=== PATIENT | male | born 1965 | race Two or more races ===

== ENCOUNTER 2019-09-27 20:57 | Emergency (ER) | payer MEDICAID ==
[2019-09-27] MEDS ORDERED: oxyCODONE 5 MG Tab PO ONE (21:06)
--- NOTE | 2019-09-27 22:29 | EDM.PDOC ---
ED HPI GENERAL MEDICAL PROBLEM - General Chief Complaint: General Stated Complaint: pain Time Seen by Provider: 09/27/19 21:00 Source of Information: Reports: Patient, EMS, EMS Notes Reviewed History Limitations: Reports: No Limitations - History of Present Illness INITIAL COMMENTS - FREE TEXT/NARRATIVE: Pt. presents to ER with complaints of leg and hip pain. Pt. has a longstanding history of chronic pain. He is a resident at the [facility]. Pt. was given a second oxycodone secondary to medication error at the [facility] this afternoon. As a result, staff would not give him his PM dose of oxycodone. Staff because upset and was yelling at the nursing staff, so his PCP had the patient sent to ER for evaluation. Pt. was cooperative with EMS. Denies any chief complaint, other than a worsening of his chronic pain. Pt. denies any fever or chills. No headache. No chest pain or shortness of breath, abdominal pain, nausea, vomiting, or diarrhea. Onset: Today Onset Date: 09/27/19 Location: Reports: Lower Extremity, Left, Lower Extremity, Right Quality: Reports: Ache, Burning Severity: Severe Associated Symptoms: Reports: No Other Symptoms. Denies: Confusion, Chest Pain , Cough, cough w sputum, Diaphoresis, Fever/Chills, Headaches, Loss of Appetite , Malaise, Nausea/Vomiting, Rash, Seizure, Shortness of Breath, Syncope, Weakness Bilateral Leg Pain Score (Numeric/FACES): 7 - Related Data Allergies Allergy/AdvReac Type Severity Reaction Status Date / Time codeine Allergy Other Verified 09/27/19 21:05 ketorolac [From Toradol] Allergy Other Verified 09/27/19 21:09 lactose Allergy Other Verified 09/27/19 21:09 meperidine [From Demerol] Allergy Other Verified 09/27/19 21:06 naproxen Allergy Other Verified 09/27/19 21:09 NSAIDS (Non-Steroidal Allergy Other Verified 09/27/19 21:09 Anti-Inflamma quetiapine [From Seroquel] Allergy Other Verified 09/27/19 21:09 ED ROS GENERAL - Review of Systems Review Of Systems: See Below Constitutional: Reports: No Symptoms HEENT: Reports: No Symptoms Respiratory: Reports: No Symptoms Cardiovascular: Reports: No Symptoms Endocrine: Reports: No Symptoms GI/Abdominal: Reports: No Symptoms : Reports: No Symptoms Musculoskeletal: Reports: Leg Pain Skin: Reports: No Symptoms Neurological: Reports: No Symptoms Psychiatric: Reports: No Symptoms Hematologic/Lymphatic: Reports: No Symptoms Immunologic: Reports: No Symptoms ED EXAM, GENERAL - Physical Exam Exam: See Below Exam Limited By: No Limitations General Appearance: Alert, WD/WN, No Apparent Distress Eye Exam: Bilateral Eye: EOMI, Normal Fundi, Normal Inspection, PERRL Nose: Normal Inspection, Normal Mucosa, No Blood Throat/Mouth: Normal Inspection, Normal Lips, Normal Teeth, Normal Gums, Normal Oropharynx, Normal Voice, No Airway Compromise Head: Atraumatic, Normocephalic Neck: Normal Inspection, Supple, Non-Tender, Full Range of Motion Respiratory/Chest: No Respiratory Distress, Lungs Clear, Normal Breath Sounds, No Accessory Muscle Use, Chest Non-Tender Cardiovascular: Normal Peripheral Pulses, Regular Rate, Rhythm, No Edema, No JVD , No Murmur, No Rub Peripheral Pulses: 4+: Radial (L) GI/Abdominal: Soft, Non-Tender, No Organomegaly, No Distention, No Mass, Pelvis Stable (Male) Exam: Deferred Rectal (Males) Exam: Deferred Back Exam: Normal Inspection Extremities: Normal Range of Motion, Other (significant stasis pigmentation to both lower legs.) Neurological: Alert, Oriented, CN II-XII Intact, Normal Cognition, Normal Gait, Normal Reflexes, No Motor/Sensory Deficits Psychiatric: Normal Affect, Normal Mood Skin Exam: Warm, Dry, Intact, Normal Color, No Rash Lymphatic: No Adenopathy Course - Vital Signs Last Recorded V/S: Last Vital Signs Temp 37.2 C 09/27/19 21:09 Pulse 84 09/27/19 21:09 Resp 20 09/27/19 21:09 BP 129/72 09/27/19 21:09 Pulse Ox 96 09/27/19 21:09 - Orders/Labs/Meds Meds: Medications Discontinued Medications Generic Name Dose Route Start Last Admin Trade Name Freq PRN Reason Stop Dose Admin Oxycodone HCl 5 mg 09/27/19 21:06 09/27/19 21:15 Oxycodone PO 09/27/19 21:07 5 mg ONETIME ONE Administration Departure - Departure Time of Disposition: 22:33 Disposition: DC/Tfer to SNF 03 Clinical Impression: Chronic pain - Discharge Information Referrals: Merlyn Mcmillan DO [Primary Care Provider] - Forms: ED Department Discharge, Interfacility Transfer RUPA Additional Instructions: Continue with medications at current dosages. Follow-up in clinic in 7-10 days. Sepsis Event Note - Evaluation Sepsis Screening Result: No Definite Risk - Focused Exam Vital Signs: Vital Signs Temp Pulse Resp BP Pulse Ox 09/27/19 21:09 37.2 C 84 20 129/72 96 Date Exam was Performed: 09/27/19 Time Exam was Performed: 22:21 - Assessment/Plan Plan: Pt. is alert, oriented and appropriate in ER. He is able to recall his entire complex medical history. He discussed his concerns with [facility] staff, stating that he has a hard time adjusting because he is young, independent, and able to perform all of his ADLs. Pt. sister also contacted the hospital. She is his POA. She is concerned that he has a history of addiction in the past and is getting pain medication. She was reassured that the dose of opiate pain medication is quite low and very closely regulated. Also, the patient suffers from numerous painful medical conditions. She was advised to address these issues with his PCP, as Hugh is in the emergency room and not experiencing any sort of medical emergency. All questions were answered for patient and family. He was advised to cooperate with the nurse working tonight and raise his concerns tomorrow with social work/administration.
== END 2019-09-27 21:58 ==
LOC: VM.ED 20:57
DX: G89.29 Other chronic pain (principal); Z88.5 Allergy status to narcotic agent; Z88.6 Allergy status to analgesic agent; Z88.8 Allergy status to other drugs, medicaments and biological substances; Z91.011 Allergy to milk products
CPT/HCPCS: 99283; A9270-GY

== ENCOUNTER 2019-11-13 05:56 | Emergency (ER) | payer MEDICAID ==
[2019-11-13] MEDS ORDERED: Insulin Lispro 100 Unit/ML 3 ML KwikPen SUBCUT ONE ×2 (06:17→06:38)
[2019-11-13] MEDS ORDERED: Insulin Lispro 100 Units/ML 3 ML Vial SUBCUT ONE (06:17)
[2019-11-13 07:27] LABS: CHLORIDE,CL 94 mmol/L (98-107); SODIUM,NA 133 mmol/L (136-145)
[2019-11-13 07:28] LABS: ANION GAP 12.2 mmol/L (10-20)
--- NOTE | 2019-11-13 07:36 | EDM.PDOC ---
ED HPI GENERAL MEDICAL PROBLEM - General Chief Complaint: Diabetic Complaint Stated Complaint: High blood sugar Time Seen by Provider: 11/13/19 06:05 Source of Information: Reports: Patient History Limitations: Reports: No Limitations - History of Present Illness INITIAL COMMENTS - FREE TEXT/NARRATIVE: Pt. presents to ER via EMS with hyperglycemia. He is a resident at [facility]. He states that they have been out of his Humalog insulin for 2 days. His blood sugar at [facility] was greater than 500 prior to coming to ER. Pt. is on lantus 45 u daily. His humalog dose is sliding scale but he always gets 8 units with meals. Pt. denies any chest pain or shortness of breath. No nausea, vomiting, or diarrhea. No fever or chills. No weakness or lightheadedness. No polyuria, polydpisia, or polyphagia. He offers no complaints. Pt. PCP is Dr. Mcmillan. Onset: Today Onset Date: 11/12/19 - Related Data Allergies Allergy/AdvReac Type Severity Reaction Status Date / Time codeine Allergy Other Verified 11/13/19 07:25 ketorolac [From Toradol] Allergy Other Verified 11/13/19 07:25 lactose Allergy Other Verified 11/13/19 07:25 meperidine [From Demerol] Allergy Other Verified 11/13/19 07:25 naproxen Allergy Other Verified 11/13/19 07:25 NSAIDS (Non-Steroidal Allergy Other Verified 11/13/19 07:25 Anti-Inflamma quetiapine [From Seroquel] Allergy Other Verified 11/13/19 07:25 Home Meds: Home Meds Aspirin 81 mg PO DAILY 09/27/19 [History] Benztropine [Cogentin] 0.5 mg PO DAILY 09/27/19 [History] Butalb/Acetaminophen/Caffeine [Zftrai-Isthwval-Olqh 50-325-40] 1 each PO Q4H PRN 09/27/19 [History] Calcium Carbonate [Tums] 500 mg PO Q8H PRN 09/27/19 [History] [place]/Min Oil/Gabby/Wool Alcoh [Eucerin Creme] 0 gm TOP BID 09/27/19 [History] Cholecalciferol (Vitamin D3) [Vitamin D3] 5,000 unit PO DAILY 09/27/19 [History] ClonazePAM [KlonoPIN] 0.5 mg PO BID 09/27/19 [History] FLUoxetine HCl [Prozac] 20 mg PO DAILY 09/27/19 [History] Hydrocortisone [Hydrocortisone 1% Crm] 28.4 gm TOP BID PRN 09/27/19 [History] Insulin Glargine,Hum.Rec.Anlog [Basaglar Kwikpen U-100] 55 unit SQ DAILY [History] Insulin Lispro [HumaLOG] 10 unit SQ TID 09/27/19 [History] Lisinopril [Zestril] 40 mg PO DAILY 09/27/19 [History] Loperamide HCl [Imodium A-D] 2 mg PO ASDIRECTED PRN 09/27/19 [History] Morphine Sulfate 15 mg PO BID 09/27/19 [History] Naloxone [Narcan] 0.4 mg .XX ASDIRECTED PRN 09/27/19 [History] Ondansetron [Ondansetron Odt] 4 mg PO Q12H PRN 09/27/19 [History] Pantoprazole Sodium 40 mg PO DAILY 09/27/19 [History] Pramipexole [Mirapex] 0.25 mg PO DAILY 09/27/19 [History] Pregabalin 150 mg PO BID 09/27/19 [History] Rifaximin [Xifaxan] 550 mg PO BID 09/27/19 [History] Rivaroxaban [Xarelto] 10 mg PO DAILY 09/27/19 [History] Skin Cleanser Comb.no.11 [Cavilon] 236 ml TP BID 09/27/19 [History] Torsemide 20 mg PO DAILY 09/27/19 [History] Venlafaxine HCl [Venlafaxine HCl ER] 225 mg PO DAILY 09/27/19 [History] Ziprasidone HCl [Geodon] 60 mg PO BID 09/27/19 [History] Zolpidem Tartrate 10 mg PO BEDTIME 09/27/19 [History] amLODIPine Besylate [Amlodipine Besylate] 10 mg PO DAILY 09/27/19 [History] atorvaSTATin [Lipitor] 10 mg PO DAILY 09/27/19 [History] levETIRAcetam [Levetiracetam] 750 mg PO BID 09/27/19 [History] metFORMIN [Glucophage XR] 500 mg PO BIDMEALS 09/27/19 [History] oxyCODONE 5 mg PO DAILY PRN 09/27/19 [History] oxyCODONE 5 mg PO TID 09/27/19 [History] Past Medical History Cardiovascular History: Reports: Hypertension Gastrointestinal History: Reports: Fatty Liver, Other (See Below) Other Gastrointestinal History: Crohns, hepatic failure Musculoskeletal History: Reports: Other (See Below) Other Musculoskeletal History: generalized muscle weakness Neurological History: Reports: Neuropathy, Diabetic, Neuropathy, Peripheral, Seizure Psychiatric History: Reports: Anxiety, Bipolar, Other (See Below) Other Psychiatric History: failure to thrive, personality disorder, mixed obsessional thoughts and acts, episodic paroxysmal anxiety, insomnia, agitation Endocrine/Metabolic History: Reports: Diabetes, Type II, Obesity/BMI 30+ Dermatologic History: Reports: Venous Stasis Dermatitis ED ROS GENERAL - Review of Systems Review Of Systems: Comprehensive ROS is negative, except as noted in HPI. ED EXAM GENERAL NO PERIP PULSE - Physical Exam Exam: See Below Exam Limited By: No Limitations General Appearance: Alert, WD/WN, No Apparent Distress Eye Exam: Bilateral Eye: EOMI, Normal Fundi, Normal Inspection, PERRL Nose: Normal Inspection, Normal Mucosa, No Blood Throat/Mouth: Normal Inspection, Normal Lips, Normal Teeth, Normal Gums, Normal Oropharynx, Normal Voice, No Airway Compromise Head: Atraumatic, Normocephalic Neck: Normal Inspection, Supple, Non-Tender, Full Range of Motion Respiratory/Chest: No Respiratory Distress, Lungs Clear, Normal Breath Sounds, No Accessory Muscle Use, Chest Non-Tender Cardiovascular: Normal Peripheral Pulses, Regular Rate, Rhythm, No Edema, No Gallop, No JVD, No Murmur, No Rub GI/Abdominal: Normal Bowel Sounds, Soft, Non-Tender, No Organomegaly, No Distention, No Mass (Male) Exam: Deferred Rectal (Males) Exam: Deferred Back Exam: Normal Inspection, Full Range of Motion Extremities: Normal Inspection, Normal Range of Motion, Non-Tender, No Pedal Edema, Normal Capillary Refill Neurological: Alert, Oriented, CN II-XII Intact, Normal Cognition, Normal Gait, Normal Reflexes, No Motor/Sensory Deficits Psychiatric: Normal Affect, Normal Mood Skin Exam: Warm, Dry, Intact, Normal Color, No Rash Lymphatic: No Adenopathy Course - Vital Signs Last Recorded V/S: Last Vital Signs Temp 36.9 C 11/13/19 07:22 Pulse 85 11/13/19 07:22 Resp 16 11/13/19 07:22 BP 115/65 11/13/19 07:22 Pulse Ox 94 L 11/13/19 07:22 - Orders/Labs/Meds Orders: Active Orders 24 hr Category Date Time Status Blood Glucose Check, Bedside [RC] ONETIME Care 11/13/19 07:42 Active Labs: Laboratory Tests 11/13/19 11/13/19 11/13/19 Range/Units 06:08 06:42 06:42 WBC 7.1 (4.0-10.0) x10^3/uL RBC 4.08 L (4.5-6.0) x10^6/uL Hgb 12.4 L (14.0-18.0) g/dL Hct 37.3 L (40.0-52.0) % MCV 91.4 (78.0-93.0) fL MCH 30.4 (26.0-32.0) pg MCHC 33.2 (32.0-36.0) g/dL RDW Coeff of Kimberlyn 13.4 (10.0-15.0) % Plt Count 145 (130-400) x10^3/uL Neut % (Auto) 62.3 (50.0-80.0) % Lymph % (Auto) 26.6 (25.0-50.0) % [place] % (Auto) 9.5 (2.0-11.0) % Eos % (Auto) 1.3 (0.0-4.0) % Baso % (Auto) 0.3 (0.2-1.2) % POC ABG pH (7.35-7.45) POC ABG pCO2 (35-45) mmHG POC ABG pO2 (80-105) mmHG POC ABG HCO3 (22-26) mmol/L POC ABG Total CO2 (23-27) mmol/L POC ABG O2 Sat (95-98) % POC ABG Base Excess (-2-3) mmol/L POC FiO2 Sodium 133 L (136-145) mmol/L Potassium 4.2 (3.5-5.1) mmol/L Chloride 94 L (98-107) mmol/L Carbon Dioxide 31 (21-32) mmol/L Anion Gap 12.2 (10-20) mmol/L BUN 8 (7-18) mg/dL Creatinine 1.0 (0.70-1.30) mg/dL Est Cr Clr Drug Dosing 88.21 mL/min Estimated GFR (MDRD) > 60 Glucose 449 H* (74-106) mg/dL POC Glucose 489 H* (74-106) mg/dL Calcium 8.7 (8.5-10.1) mg/dL Corrected Calcium 9.66 (8.5-10.1) mg/dL Total Bilirubin 0.4 (0.2-1.0) mg/dL AST 42 H (15-37) U/L ALT 45 (16-63) U/L Alkaline Phosphatase 288 H (46-116) U/L Total Protein 8.1 (6.4-8.2) g/dL Albumin 2.8 L (3.4-5.0) g/dL Globulin 5.3 Albumin/Globulin Ratio 0.53 Urine Color (YELLOW) Urine Appearance (CLEAR) Urine pH (5.0-8.0) Ur Specific [place] Urine Protein (NEGATIVE) mg/dL Urine Glucose (UA) (NEGATIVE) mg/dL Urine Ketones (NEGATIVE) mg/dL Urine Occult Blood (NEGATIVE) Urine Nitrite (NEGATIVE) Urine Bilirubin (NEGATIVE) Urine Urobilinogen (0.2) EU/dL Ur Leukocyte Esterase (NEGATIVE) Urine RBC (NOT SEEN) /HPF Urine WBC (NOT SEEN) /HPF Ur Squamous Epith Cells (NEGATIVE) /HPF Urine Bacteria (NEGATIVE) /HPF Urine Mucus (NEGATIVE) /LPF 11/13/19 11/13/19 11/13/19 Range/Units 07:01 07:06 07:15 WBC (4.0-10.0) x10^3/uL RBC (4.5-6.0) x10^6/uL Hgb (14.0-18.0) g/dL Hct (40.0-52.0) % MCV (78.0-93.0) fL MCH (26.0-32.0) pg MCHC (32.0-36.0) g/dL RDW Coeff of Kimberlyn (10.0-15.0) % Plt Count (130-400) x10^3/uL Neut % (Auto) (50.0-80.0) % Lymph % (Auto) (25.0-50.0) % [place] % (Auto) (2.0-11.0) % Eos % (Auto) (0.0-4.0) % Baso % (Auto) (0.2-1.2) % POC ABG pH 7.397 (7.35-7.45) POC ABG pCO2 49 H (35-45) mmHG POC ABG pO2 64 L (80-105) mmHG POC ABG HCO3 30 H (22-26) mmol/L POC ABG Total CO2 31 H (23-27) mmol/L POC ABG O2 Sat 92 L (95-98) % POC ABG Base Excess 5 H (-2-3) mmol/L POC FiO2 0.21 Sodium (136-145) mmol/L Potassium (3.5-5.1) mmol/L Chloride (98-107) mmol/L Carbon Dioxide (21-32) mmol/L Anion Gap (10-20) mmol/L BUN (7-18) mg/dL Creatinine (0.70-1.30) mg/dL Est Cr Clr Drug Dosing mL/min Estimated GFR (MDRD) Glucose (74-106) mg/dL POC Glucose 429 H* (74-106) mg/dL Calcium (8.5-10.1) mg/dL Corrected Calcium (8.5-10.1) mg/dL Total Bilirubin (0.2-1.0) mg/dL AST (15-37) U/L ALT (16-63) U/L Alkaline Phosphatase (46-116) U/L Total Protein (6.4-8.2) g/dL Albumin (3.4-5.0) g/dL Globulin Albumin/Globulin Ratio Urine Color Yellow (YELLOW) Urine Appearance Slightly cloudy H (CLEAR) Urine pH 6.5 (5.0-8.0) Ur Specific [place] 1.015 Urine Protein Negative (NEGATIVE) mg/dL Urine Glucose (UA) 500 H (NEGATIVE) mg/dL Urine Ketones Negative (NEGATIVE) mg/dL Urine Occult Blood Moderate H (NEGATIVE) Urine Nitrite Negative (NEGATIVE) Urine Bilirubin Negative (NEGATIVE) Urine Urobilinogen 0.2 (0.2) EU/dL Ur Leukocyte Esterase Negative (NEGATIVE) Urine RBC 10-20 H (NOT SEEN) /HPF Urine WBC 0-5 (NOT SEEN) /HPF Ur Squamous Epith Cells Rare (NEGATIVE) /HPF Urine Bacteria Occasional H (NEGATIVE) /HPF Urine Mucus Few H (NEGATIVE) /LPF 11/13/19 Range/Units 07:50 WBC (4.0-10.0) x10^3/uL RBC (4.5-6.0) x10^6/uL Hgb (14.0-18.0) g/dL Hct (40.0-52.0) % MCV (78.0-93.0) fL MCH (26.0-32.0) pg MCHC (32.0-36.0) g/dL RDW Coeff of Kimberlyn (10.0-15.0) % Plt Count (130-400) x10^3/uL Neut % (Auto) (50.0-80.0) % Lymph % (Auto) (25.0-50.0) % [place] % (Auto) (2.0-11.0) % Eos % (Auto) (0.0-4.0) % Baso % (Auto) (0.2-1.2) % POC ABG pH (7.35-7.45) POC ABG pCO2 (35-45) mmHG POC ABG pO2 (80-105) mmHG POC ABG HCO3 (22-26) mmol/L POC ABG Total CO2 (23-27) mmol/L POC ABG O2 Sat (95-98) % POC ABG Base Excess (-2-3) mmol/L POC FiO2 Sodium (136-145) mmol/L Potassium (3.5-5.1) mmol/L Chloride (98-107) mmol/L Carbon Dioxide (21-32) mmol/L Anion Gap (10-20) mmol/L BUN (7-18) mg/dL Creatinine (0.70-1.30) mg/dL Est Cr Clr Drug Dosing mL/min Estimated GFR (MDRD) Glucose (74-106) mg/dL POC Glucose 346 H (74-106) mg/dL Calcium (8.5-10.1) mg/dL Corrected Calcium (8.5-10.1) mg/dL Total Bilirubin (0.2-1.0) mg/dL AST (15-37) U/L ALT (16-63) U/L Alkaline Phosphatase (46-116) U/L Total Protein (6.4-8.2) g/dL Albumin (3.4-5.0) g/dL Globulin Albumin/Globulin Ratio Urine Color (YELLOW) Urine Appearance (CLEAR) Urine pH (5.0-8.0) Ur Specific [place] Urine Protein (NEGATIVE) mg/dL Urine Glucose (UA) (NEGATIVE) mg/dL Urine Ketones (NEGATIVE) mg/dL Urine Occult Blood (NEGATIVE) Urine Nitrite (NEGATIVE) Urine Bilirubin (NEGATIVE) Urine Urobilinogen (0.2) EU/dL Ur Leukocyte Esterase (NEGATIVE) Urine RBC (NOT SEEN) /HPF Urine WBC (NOT SEEN) /HPF Ur Squamous Epith Cells (NEGATIVE) /HPF Urine Bacteria (NEGATIVE) /HPF Urine Mucus (NEGATIVE) /LPF Meds: Medications Discontinued Medications Generic Name Dose Route Start Last Admin Trade Name Freq PRN Reason Stop Dose Admin Insulin Human Lispro 16 unit 11/13/19 06:17 Humalog SUBCUT 11/13/19 06:18 ONETIME ONE Insulin Human Lispro 16 unit 11/13/19 06:38 Humalog SUBCUT 11/13/19 06:39 ONETIME ONE Departure - Departure Time of Disposition: 07:56 Disposition: DC/Tfer to SNF 03 Clinical Impression: Hyperglycemia - Discharge Information Instructions: Hyperglycemia, Insulin Lispro injection Referrals: Merlyn Mcmillan DO [Primary Care Provider] - Forms: ED Department Discharge Additional Instructions: Humalog 8 units with meals. Check blood sugar 4 times per day today. Please have your social contact worker get in contact with his PCP regarding his insulin. We sent the rest of the bottle of humalog back to the care center with him (we don't use pens, only vials) which you can use for the time being. Recheck in clinic in 7-10 days. Sepsis Event Note - Evaluation Sepsis Screening Result: No Definite Risk - Focused Exam Vital Signs: Vital Signs Temp Pulse Resp BP Pulse Ox 11/13/19 07:22 36.9 C 85 16 115/65 94 L Date Exam was Performed: 11/13/19 Time Exam was Performed: 07:56 - My Orders Last 24 Hours: My Active Orders 11/13/19 07:42 Blood Glucose Check, Bedside [] ONETIME - Assessment/Plan Last 24 Hours: My Active Orders 11/13/19 07:42 Blood Glucose Check, Bedside [RC] ONETIME Plan: Humalog 8 units with meals. Check blood sugar 4 times per day today. Please have your social contact worker get in contact with his PCP regarding his insulin. We sent the rest of the bottle of humalog back to the care center with him (we don't use pens, only vials) which you can use for the time being. Recheck in clinic in 7-10 days.
== END 2019-11-13 08:04 ==
LOC: VM.ED 05:56
DX: E11.65 Type 2 diabetes mellitus with hyperglycemia (principal); I10 Essential (primary) hypertension; E11.40 Type 2 diabetes mellitus with diabetic neuropathy, unspecified; E66.9 Obesity, unspecified; Z79.82 Long term (current) use of aspirin; Z79.899 Other long term (current) drug therapy; Z79.4 Long term (current) use of insulin; Z88.5 Allergy status to narcotic agent; Z88.6 Allergy status to analgesic agent; Z88.8 Allergy status to other drugs, medicaments and biological substances
CPT/HCPCS: 36415; 36600; 80053; 81001; 82803; 82962; 85025; 99285; J1815

== ENCOUNTER 2020-02-10 00:44 | Emergency (ER) | payer MEDICAID ==
--- NOTE | 2020-02-10 01:08 | EDM.PDOC ---
ED HPI GENERAL MEDICAL PROBLEM - General Chief Complaint: Lower Extremity Injury/Pain Stated Complaint: Swollen Leg Time Seen by Provider: 02/10/20 00:44 Source of Information: Reports: Patient, EMS History Limitations: Reports: No Limitations - History of Present Illness INITIAL COMMENTS - FREE TEXT/NARRATIVE: Pt. presents to ER with complaints of swelling in L lower extremity and shortness of breath. Pt. states that he has been experiencing pain and swelling to L lower extremity. Nurse at [facility] stated that he only began complaining of this today. Pt. states, however, that he has been experiencing this for months. He has had an extensive workup by Dr. Mcmillan for this leg swelling. He had a negative ultrasound of the extremity in September. He has also had negative d dimers. He is currently on [id number] daily. Pt. denies any fever or chills. No chest pain or palpitations. No nausea, vomiting or diarrhea. Pt. blood sugars have been elevated. last available blood sugar in clinic chart was 458. His novolog and lantus have been increased since then, but his blood sugar is still over 400. Denies any polyuria polydipsia. Onset: Today Onset Date: 02/10/20 Location: Reports: Lower Extremity, Left, Generalized Left Lower Leg Pain Score (Numeric/FACES): 7 - Related Data Allergies Allergy/AdvReac Type Severity Reaction Status Date / Time codeine Allergy Other Verified 02/10/20 00:29 ketorolac [From Toradol] Allergy Other Verified 02/10/20 00:29 lactose Allergy Other Verified 02/10/20 00:29 meperidine [From Demerol] Allergy Other Verified 02/10/20 00:29 naproxen Allergy Other Verified 02/10/20 00:29 NSAIDS (Non-Steroidal Allergy Other Verified 02/10/20 00:29 Anti-Inflamma quetiapine [From Seroquel] Allergy Other Verified 02/10/20 00:29 Home Meds: Home Meds Aspirin 81 mg PO DAILY 09/27/19 [History] Benztropine [Cogentin] 0.5 mg PO DAILY 09/27/19 [History] Butalb/Acetaminophen/Caffeine [Lyvduh-Ungkodul-Nxbw 50-325-40] 1 each PO Q4H PRN 09/27/19 [History] Calcium Carbonate [Tums] 500 mg PO Q8H PRN 09/27/19 [History] [place]/Min Oil/Gabby/Wool Alcoh [Eucerin Creme] 0 gm TOP BID 09/27/19 [History] Cholecalciferol (Vitamin D3) [Vitamin D3] 5,000 unit PO DAILY 09/27/19 [History] ClonazePAM [KlonoPIN] 0.5 mg PO BID 09/27/19 [History] FLUoxetine HCl [Prozac] 20 mg PO DAILY 09/27/19 [History] Hydrocortisone [Hydrocortisone 1% Crm] 28.4 gm TOP BID PRN 09/27/19 [History] Insulin Glargine,Hum.Rec.Anlog [Basaglar Kwikpen U-100] 55 unit SQ DAILY [History] Insulin Lispro [HumaLOG] 10 unit SQ TID 09/27/19 [History] Loperamide HCl [Imodium A-D] 2 mg PO ASDIRECTED PRN 09/27/19 [History] Morphine Sulfate 15 mg PO BID 09/27/19 [History] Naloxone [Narcan] 0.4 mg .XX ASDIRECTED PRN 09/27/19 [History] Ondansetron [Ondansetron Odt] 4 mg PO Q12H PRN 09/27/19 [History] Pantoprazole Sodium 40 mg PO DAILY 09/27/19 [History] Pramipexole [Mirapex] 0.25 mg PO DAILY 09/27/19 [History] Pregabalin 150 mg PO BID 09/27/19 [History] Rifaximin [Xifaxan] 550 mg PO BID 09/27/19 [History] Rivaroxaban [Xarelto] 10 mg PO DAILY 09/27/19 [History] Skin Cleanser Comb.no.11 [Cavilon] 236 ml TP BID 09/27/19 [History] Torsemide 20 mg PO DAILY 09/27/19 [History] Venlafaxine HCl [Venlafaxine HCl ER] 225 mg PO DAILY 09/27/19 [History] Zolpidem Tartrate 10 mg PO BEDTIME 09/27/19 [History] amLODIPine Besylate [Amlodipine Besylate] 10 mg PO DAILY 09/27/19 [History] atorvaSTATin [Lipitor] 10 mg PO DAILY 09/27/19 [History] levETIRAcetam [Levetiracetam] 750 mg PO BID 09/27/19 [History] lisinopriL [Zestril] 40 mg PO DAILY 09/27/19 [History] metFORMIN [Glucophage XR] 500 mg PO BIDMEALS 09/27/19 [History] oxyCODONE 5 mg PO DAILY PRN 09/27/19 [History] oxyCODONE 5 mg PO TID 09/27/19 [History] ziprasidone HCL [Geodon] 60 mg PO BID 09/27/19 [History] Past Medical History Cardiovascular History: Reports: Hypertension Gastrointestinal History: Reports: Fatty Liver, Other (See Below) Other Gastrointestinal History: Crohns, hepatic failure Musculoskeletal History: Reports: Other (See Below) Other Musculoskeletal History: generalized muscle weakness Neurological History: Reports: Neuropathy, Diabetic, Neuropathy, Peripheral, Seizure Psychiatric History: Reports: Anxiety, Bipolar, Other (See Below) Other Psychiatric History: failure to thrive, personality disorder, mixed obsessional thoughts and acts, episodic paroxysmal anxiety, insomnia, agitation Endocrine/Metabolic History: Reports: Diabetes, Type II, Obesity/BMI 30+ Dermatologic History: Reports: Venous Stasis Dermatitis Review of Systems - Review of Systems Review Of Systems: See Below Constitutional: Reports: No Symptoms Eyes: Reports: No Symptoms Ears: Reports: No Symptoms Nose: Reports: No Symptoms Mouth/Throat: Reports: No Symptoms Respiratory: Reports: Shortness of Breath Cardiovascular: Reports: No Symptoms GI/Abdominal: Reports: No Symptoms Genitourinary: Reports: No Symptoms Musculoskeletal: Reports: Leg Pain Skin: Reports: No Symptoms Neurological: Reports: No Symptoms Psychiatric: Reports: No Symptoms ED EXAM, GENERAL - Physical Exam Exam: See Below Exam Limited By: No Limitations General Appearance: Alert, WD/WN, No Apparent Distress Head: Atraumatic, Normocephalic Neck: Normal Inspection, Supple, Non-Tender, Full Range of Motion Respiratory/Chest: No Respiratory Distress, Lungs Clear, Normal Breath Sounds, No Accessory Muscle Use, Chest Non-Tender Cardiovascular: Normal Peripheral Pulses, Regular Rate, Rhythm, No Edema, No JVD , No Murmur Peripheral Pulses: 3+: Dorsalis Pedis (L), Dorsalis Pedis (R), 4+: Radial (L), Radial (R) GI/Abdominal: Normal Bowel Sounds, Soft, Non-Tender, No Distention, No Mass (Male) Exam: Deferred Rectal (Males) Exam: Deferred Back Exam: Normal Inspection, Full Range of Motion Extremities: Other (stasis pigmentation noted to both legs. Both are edematous, L > R. Iman test is negative. ) Neurological: Alert, Oriented, CN II-XII Intact, No Motor/Sensory Deficits Psychiatric: Normal Affect EKG INTERPRETATION Rhythm: NSR [place]: Normal P-Wave: Present QRS: Normal ST-T: Normal QT: Normal Course - Vital Signs Last Recorded V/S: Last Vital Signs Temp 37.0 C 02/10/20 01:14 Pulse 87 02/10/20 01:14 Resp 12 02/10/20 01:14 BP 141/65 H 02/10/20 01:14 Pulse Ox 96 02/10/20 01:14 - Orders/Labs/Meds Orders: Active Orders 24 hr Category Date Time Status EKG Documentation Completion [RC] STAT Care 02/10/20 00:53 Active Chest 1V Frontal [CR] Stat Exams 02/10/20 00:53 Taken COMPREHENSIVE METABOLIC PN,CMP [CHEM] Stat Lab 02/10/20 01:18 Received PRO B-TYPE NATRIUR PEPT,BNPPRO [CHEM] Stat Lab 02/10/20 01:18 Received TROPONIN I [CHEM] Stat Lab 02/10/20 01:18 Received Labs: Laboratory Tests 02/10/20 02/10/20 Range/Units 01:18 01:18 WBC 6.9 (4.0-10.0) x10^3/uL RBC 4.14 L (4.5-6.0) x10^6/uL Hgb 12.5 L (14.0-18.0) g/dL Hct 37.3 L (40.0-52.0) % MCV 90.1 (78.0-93.0) fL MCH 30.2 (26.0-32.0) pg MCHC 33.5 (32.0-36.0) g/dL RDW Coeff of Kimberlyn 13.1 (10.0-15.0) % Plt Count 136 (130-400) x10^3/uL Neut % (Auto) 56.3 (50.0-80.0) % Lymph % (Auto) 33.3 (25.0-50.0) % Lamar % (Auto) 8.8 (2.0-11.0) % Eos % (Auto) 1.3 (0.0-4.0) % Baso % (Auto) 0.3 (0.2-1.2) % PT 11.1 (9.5-12.3) SEC INR 1.0 L (2.0-3.5) D-Dimer, Quantitative 0.30 (<=0.58) mg/LFEU Meds: Medications Discontinued Medications Generic Name Dose Route Start Last Admin Trade Name Freq PRN Reason Stop Dose Admin Oxycodone HCl 5 mg 02/10/20 01:16 02/10/20 01:22 Oxycodone PO 02/10/20 01:17 5 mg ONETIME ONE Administration - Radiology Interpretation Free Text/Narrative:: Chest x-ray is negative. Departure - Departure Time of Disposition: 02:19 Disposition: DC/Tfer to SNF 03 Clinical Impression: Hyperglycemia - Discharge Information Referrals: Merlyn Mcmillan DO [Primary Care Provider] - Forms: ED Department Discharge Sepsis Event Note - Focused Exam Vital Signs: Vital Signs Temp Pulse Resp BP Pulse Ox 02/10/20 01:14 37.0 C 87 12 141/65 H 96 Date Exam was Performed: 02/10/20 Time Exam was Performed: 01:42 - Problem List Review Problem List Initiated/Reviewed/Updated: Yes - My Orders Last 24 Hours: My Active Orders 02/10/20 00:53 EKG Documentation Completion [RC] STAT Chest 1V Frontal [CR] Stat 02/10/20 01:18 COMPREHENSIVE METABOLIC PN,CMP [CHEM] Stat PRO B-TYPE NATRIUR PEPT,BNPPRO [CHEM] Stat TROPONIN I [CHEM] Stat - Assessment/Plan Last 24 Hours: My Active Orders 02/10/20 00:53 EKG Documentation Completion [RC] STAT Chest 1V Frontal [CR] Stat 02/10/20 01:18 COMPREHENSIVE METABOLIC PN,CMP [CHEM] Stat PRO B-TYPE NATRIUR PEPT,BNPPRO [CHEM] Stat TROPONIN I [CHEM] Stat Plan: D dimer was negative. Chest x-ray is normal. Lung sounds are clear. Again, blood sugar is elevated but it has been consistently. Will increase both his novalog to 35u with meals and lantus to 75u once daily. Also, his oxycodone was increased to TID (nursing states was twice daily. Recheck in clinic next week.
[2020-02-10] MEDS: oxyCODONE 5 MG Tab PO ONE (01:22)
[2020-02-10 02:00] LABS: CHLORIDE,CL 94 mmol/L (98-107); SODIUM,NA 132 mmol/L (136-145)
[2020-02-10 02:01] LABS: ANION GAP 13.9 mmol/L (10-20)
--- NOTE | 2020-02-10 10:27 | CR ---
[id number] RAD/RAD Chest PA or AP 1V EXAM: RAD Chest PA or AP 1V INDICATION: SHORTNESS OF BREATH COMPARISON: None. DISCUSSION: Cardiomediastinal silhouette is enlarged. Low lung volumes associated vascular crowding. No definite pulmonary infiltrate. No pneumothorax or pleural effusion. IMPRESSION: No definite acute cardiopulmonary abnormality. Lloyd Escobar DO 02/10/20 1026 Thank you for allowing us to participate in the care of your patient.
== END 2020-02-10 02:35 ==
LOC: SUPCPDRO 00:44 → VM.ED 00:44
DX: E11.65 Type 2 diabetes mellitus with hyperglycemia (principal); I10 Essential (primary) hypertension; E11.42 Type 2 diabetes mellitus with diabetic polyneuropathy; F31.9 Bipolar disorder, unspecified; F41.9 Anxiety disorder, unspecified; E66.9 Obesity, unspecified; Z88.3 Allergy status to other anti-infective agents; Z88.8 Allergy status to other drugs, medicaments and biological substances; Z79.82 Long term (current) use of aspirin; Z79.899 Other long term (current) drug therapy; Z79.4 Long term (current) use of insulin; Z68.43 Body mass index [BMI] 50.0-59.9, adult
CPT/HCPCS: 36415; 71045; 80053; 83880; 84484; 85025; 85379; 85610; 93005; 99285-25; A9270-GY

== ENCOUNTER 2020-10-18 10:25 | Emergency (ER) | payer MEDICAID ==
[2020-10-18] MEDS ORDERED: Sodium Chloride 0.9% 10 ML Syringe FLUSH PRN (10:52)
[2020-10-18] MEDS ORDERED: cefTRIAXone 2 GM Vial IVPUSH ONE (10:53)
[2020-10-18] MEDS ORDERED: Sodium Chloride 0.9% 1,000 ML IV ONE (10:53)
--- NOTE | 2020-10-18 11:08 | EDM.PDOC ---
ED HPI GENERAL MEDICAL PROBLEM - General Stated Complaint: weakness/fever Time Seen by Provider: 10/18/20 10:25 Source of Information: Reports: EMS, EMS Notes Reviewed, Residential Records History Limitations: Reports: No Limitations - History of Present Illness INITIAL COMMENTS - FREE TEXT/NARRATIVE: Was into the emergency department via ambulance with complaints of weakness. Patient is a local resident at the [facility] and was noted to have a decrease in ability to grasp objects or to complete ADLs starting yesterday. [facility] staff became concerned that the patient was not as coherent or alert this morning. They were provided information regarding transporting patient to the emergency department. EMS state the patient is alert and oriented however very weak, hot to the touch, and abnormal lung sounds. Upon arrival to the emergency department the patient states that he has had a productive cough the last 2 days and did have COVID-19 about 3 months ago. He states that he is extremely cold and shivering, weak, and does not feel well. Patient states that he was too weak to get up out of bed today and he is extremely tired. Recent COVID-19 exposure or recent illnesses. He has been dealing with venous stasis on lower extremities and he has noticed the last couple days that they have been draining more than normal. He does have a dressing on the left lower extremity that is completed by nursing daily. Onset: Gradual Duration: Getting Worse Location: Reports: Generalized Quality: Reports: Other Severity: Severe Improves with: Reports: None Worsens with: Reports: None Associated Symptoms: Reports: cough w sputum, Fever/Chills, Loss of Appetite, Malaise, Shortness of Breath, Weakness - Related Data Allergies Allergy/AdvReac Type Severity Reaction Status Date / Time codeine Allergy Other Verified 10/18/20 11:58 ketorolac [From Toradol] Allergy Other Verified 10/18/20 11:58 lactose Allergy Other Verified 10/18/20 11:58 meperidine [From Demerol] Allergy Other Verified 10/18/20 11:58 naproxen Allergy Other Verified 10/18/20 11:58 NSAIDS (Non-Steroidal Allergy Other Verified 10/18/20 11:58 Anti-Inflamma quetiapine [From Seroquel] Allergy Other Verified 10/18/20 11:58 Home Meds: Home Meds Aspirin 81 mg PO DAILY 09/27/19 [History] Benztropine [Cogentin] 0.5 mg PO DAILY 09/27/19 [History] Butalb/Acetaminophen/Caffeine [Rtalxm-Muvjzasd-Hbxw 50-325-40] 1 each PO Q4H PRN 09/27/19 [History] Calcium Carbonate [Tums] 500 mg PO Q8H PRN 09/27/19 [History] Hydrocortisone [Hydrocortisone 1% Crm] 28.4 gm TOP BID PRN 09/27/19 [History] Insulin Lispro [HumaLOG] 35 unit SQ TID 09/27/19 [History] Loperamide HCl [Imodium A-D] 4 mg PO ASDIRECTED PRN 09/27/19 [History] Naloxone [Narcan] 0.4 mg .XX ASDIRECTED PRN 09/27/19 [History] Ondansetron [Ondansetron Odt] 4 mg PO Q8HR PRN 09/27/19 [History] Pantoprazole Sodium 40 mg PO DAILY 09/27/19 [History] Pramipexole [Mirapex] 0.25 mg PO DAILY 09/27/19 [History] Pregabalin 300 mg PO BID 09/27/19 [History] Rivaroxaban [Xarelto] 10 mg PO DAILY 09/27/19 [History] Torsemide 20 mg PO DAILY 09/27/19 [History] Venlafaxine HCl [Venlafaxine HCl ER] 225 mg PO DAILY 09/27/19 [History] amLODIPine Besylate [Amlodipine Besylate] 10 mg PO DAILY 09/27/19 [History] atorvaSTATin [Lipitor] 10 mg PO DAILY 09/27/19 [History] levETIRAcetam [Levetiracetam] 750 mg PO BID 09/27/19 [History] lisinopriL [Zestril] 40 mg PO DAILY 09/27/19 [History] oxyCODONE 5 mg PO TID 09/27/19 [History] ARIPiprazole [Abilify] 5 mg PO DAILY 02/10/20 [History] Insulin Glarg,Human.Rec.Analog [Lantus Solostar] 75 unit SUBCUT DAILY 02/10/20 [History] Lactulose 30 gm PO TID 02/10/20 [History] Sennosides [Senna] 8.6 mg PO ASDIRECTED PRN 02/10/20 [History] metFORMIN HCl [Metformin HCl] 500 mg PO BID 02/10/20 [History] polyethylene glycoL 3350 [Miralax] 17 gm PO ASDIRECTED PRN 02/10/20 [History] Past Medical History Cardiovascular History: Reports: Hypertension Gastrointestinal History: Reports: Fatty Liver, Other (See Below) Other Gastrointestinal History: Crohns, hepatic failure Musculoskeletal History: Reports: Other (See Below) Other Musculoskeletal History: generalized muscle weakness Neurological History: Reports: Neuropathy, Diabetic, Neuropathy, Peripheral, Seizure Psychiatric History: Reports: Anxiety, Bipolar, Other (See Below) Other Psychiatric History: failure to thrive, personality disorder, mixed obsessional thoughts and acts, episodic paroxysmal anxiety, insomnia, agitation Endocrine/Metabolic History: Reports: Diabetes, Type II, Obesity/BMI 30+ Dermatologic History: Reports: Venous Stasis Dermatitis ED ROS GENERAL - Review of Systems Review Of Systems: See Below Constitutional: Reports: Fever, Chills, Malaise, Weakness, Fatigue, Decreased Appetite HEENT: Reports: No Symptoms Respiratory: Reports: Cough, Sputum Cardiovascular: Reports: Dyspnea on Exertion Endocrine: Reports: Fatigue GI/Abdominal: Reports: No Symptoms : Reports: No Symptoms Musculoskeletal: Reports: No Symptoms Skin: Reports: No Symptoms Neurological: Reports: No Symptoms Psychiatric: Reports: No Symptoms Hematologic/Lymphatic: Reports: No Symptoms Immunologic: Reports: No Symptoms ED EXAM, GENERAL - Physical Exam Exam: See Below Exam Limited By: No Limitations General Appearance: Alert, Moderate Distress Nose: Normal Inspection, Normal Mucosa Throat/Mouth: Normal Inspection, Normal Lips, Normal Voice, No Airway Compromise Head: Atraumatic, Normocephalic Neck: Normal Inspection, Supple, Non-Tender, Full Range of Motion Respiratory/Chest: Decreased Breath Sounds, Crackles, Rhonchi Cardiovascular: Tachycardia Peripheral Pulses: 2+: Dorsalis Pedis (L), Dorsalis Pedis (R) GI/Abdominal: Normal Bowel Sounds, Soft, Non-Tender Back Exam: Normal Inspection, Full Range of Motion Extremities: Normal Inspection, Normal Range of Motion, Redness, Other (left lower leg- open wound with drainage noted. redness, swelling and warmth noted. Right leg kei statis noted) Neurological: Alert, Normal Cognition Psychiatric: Normal Affect, Normal Mood Skin Exam: Increased Warmth Course - Orders/Labs/Meds Orders: Active Orders 24 hr Category Date Time Status EKG Documentation Completion [RC] STAT Care 10/18/20 10:53 Active Insert Urinary Catheter [OM.PC] Q24H Care 10/18/20 11:30 Ordered Oxygen Therapy [RC] ASDIRECTED Care 10/18/20 11:55 Active Urinary Catheter Assessment [RC] ASDIRECTED Care 10/18/20 11:19 Active Chest 1V Frontal [CR] Stat Exams 10/18/20 11:02 Taken CULTURE BLOOD [BC] Stat Lab 10/18/20 11:00 Results CULTURE BLOOD [BC] Stat Lab 10/18/20 11:19 Received CULTURE WOUND [RM] Stat Lab 10/18/20 11:50 Received UA W/MICROSCOPIC [URIN] Stat Lab 10/18/20 11:35 Results Sodium Chloride 0.9% [Saline Flush] Med 10/18/20 10:52 Active 10 ml FLUSH ASDIRECTED PRN Blood Culture x2 Reflex Set [OM.PC] Stat Oth 10/18/20 10:52 Ordered Peripheral IV Insertion Adult [OM.PC] Stat Oth 10/18/20 10:52 Ordered Medication Orders Sodium Chloride (Saline Flush) 10 ml FLUSH ASDIRECTED PRN PRN Reason: Keep Vein Open Labs: Laboratory Tests 10/18/20 10/18/20 10/18/20 Range/Units 11:19 11:19 11:19 WBC 16.0 H (4.0-10.0) x10^3/uL RBC 3.62 L (4.5-6.0) x10^6/uL Hgb 11.6 L (14.0-18.0) g/dL Hct 33.9 L (40.0-52.0) % MCV 93.6 H D (78.0-93.0) fL MCH 32.0 (26.0-32.0) pg MCHC 34.2 (32.0-36.0) g/dL RDW Coeff of Kimberlyn 13.8 (10.0-15.0) % Plt Count 177 (130-400) x10^3/uL Neut % (Auto) 84.0 H (50.0-80.0) % Lymph % (Auto) 5.9 L (25.0-50.0) % [place] % (Auto) 9.8 (2.0-11.0) % Eos % (Auto) 0.1 (0.0-4.0) % Baso % (Auto) 0.2 (0.2-1.2) % Sodium 129 L* (136-145) mmol/L Potassium 5.3 H (3.5-5.1) mmol/L Chloride 93 L (98-107) mmol/L Carbon Dioxide 26 (21-32) mmol/L Anion Gap 15.3 H (5-15) mmol/L BUN 25 H (7-18) mg/dL Creatinine 1.3 (0.70-1.30) mg/dL Est Cr Clr Drug Dosing TNP Estimated GFR (MDRD) 58 Glucose 225 H (74-106) mg/dL Lactic Acid 2.1 H* (0.4-2.0) mmol/L Calcium 9.1 (8.5-10.1) mg/dL Corrected Calcium 10.30 H (8.5-10.1) mg/dL Total Bilirubin 1.0 (0.2-1.0) mg/dL AST 69 H (15-37) U/L ALT 50 (16-63) U/L Alkaline Phosphatase 308 H (46-116) U/L Troponin I < 0.017 (<=0.056) ng/mL NT-Pro-B Natriuret Pep 41 (<=125) pg/mL Total Protein 9.2 H (6.4-8.2) g/dL Albumin 2.5 L (3.4-5.0) g/dL Globulin 6.7 Albumin/Globulin Ratio 0.37 Urine Color (YELLOW) Urine Appearance (CLEAR) Urine pH (5.0-8.0) Ur Specific [place] Urine Protein (NEGATIVE) mg/dL Urine Glucose (UA) (NEGATIVE) mg/dL Urine Ketones (NEGATIVE) mg/dL Urine Occult Blood (NEGATIVE) Urine Nitrite (NEGATIVE) Urine Bilirubin (NEGATIVE) Urine Urobilinogen (0.2) EU/dL Ur Leukocyte Esterase (NEGATIVE) 10/18/20 Range/Units 11:35 WBC (4.0-10.0) x10^3/uL RBC (4.5-6.0) x10^6/uL Hgb (14.0-18.0) g/dL Hct (40.0-52.0) % MCV (78.0-93.0) fL MCH (26.0-32.0) pg MCHC (32.0-36.0) g/dL RDW Coeff of Kimberlyn (10.0-15.0) % Plt Count (130-400) x10^3/uL Neut % (Auto) (50.0-80.0) % Lymph % (Auto) (25.0-50.0) % [place] % (Auto) (2.0-11.0) % Eos % (Auto) (0.0-4.0) % Baso % (Auto) (0.2-1.2) % Sodium (136-145) mmol/L Potassium (3.5-5.1) mmol/L Chloride (98-107) mmol/L Carbon Dioxide (21-32) mmol/L Anion Gap (5-15) mmol/L BUN (7-18) mg/dL Creatinine (0.70-1.30) mg/dL Est Cr Clr Drug Dosing Estimated GFR (MDRD) Glucose (74-106) mg/dL Lactic Acid (0.4-2.0) mmol/L Calcium (8.5-10.1) mg/dL Corrected Calcium (8.5-10.1) mg/dL Total Bilirubin (0.2-1.0) mg/dL AST (15-37) U/L ALT (16-63) U/L Alkaline Phosphatase (46-116) U/L Troponin I (<=0.056) ng/mL NT-Pro-B Natriuret Pep (<=125) pg/mL Total Protein (6.4-8.2) g/dL Albumin (3.4-5.0) g/dL Globulin Albumin/Globulin Ratio Urine Color Dark yellow H (YELLOW) Urine Appearance Slightly cloudy H (CLEAR) Urine pH 7.0 (5.0-8.0) Ur Specific [place] 1.015 Urine Protein Trace H (NEGATIVE) mg/dL Urine Glucose (UA) 500 H (NEGATIVE) mg/dL Urine Ketones Negative (NEGATIVE) mg/dL Urine Occult Blood Large H (NEGATIVE) Urine Nitrite Negative (NEGATIVE) Urine Bilirubin Negative (NEGATIVE) Urine Urobilinogen 1.0 (0.2) EU/dL Ur Leukocyte Esterase Negative (NEGATIVE) Meds: Medications Generic Name Dose Route Start Last Admin Trade Name Freq PRN Reason Stop Dose Admin Sodium Chloride 10 ml 10/18/20 10:52 Saline Flush FLUSH ASDIRECTED PRN Keep Vein Open Discontinued Medications Generic Name Dose Route Start Last Admin Trade Name Michi PRN Reason Stop Dose Admin Acetaminophen 650 mg 10/18/20 12:01 Tylenol PO 10/18/20 12:02 NOW ONE Ceftriaxone Sodium 2 gm 10/18/20 10:53 10/18/20 11:10 Rocephin IVPUSH 10/18/20 10:54 2 gm STAT ONE Administration Sodium Chloride 1,000 mls @ 1,000 mls/hr 10/18/20 10:53 10/18/20 11:05 Normal Saline IV 10/18/20 11:52 1,000 mls/hr ONETIME ONE Administration Departure - Departure Time of Disposition: 12:15 Disposition: DC/Tfer to Acute Hospital 02 Condition: Poor Clinical Impression: Hepatic encephalopathy, Hospital-acquired bacterial pneumonia Sepsis Qualifiers: Sepsis type: sepsis due to unspecified organism Sepsis acute organ dysfunction status: with acute organ dysfunction Severe sepsis acute organ dysfunction type: encephalopathy Severe sepsis shock status: with septic shock Qualified Code(s): A41.9 - Sepsis, unspecified organism - Discharge Information *PRESCRIPTION DRUG MONITORING PROGRAM REVIEWED*: Not Applicable *COPY OF PRESCRIPTION DRUG MONITORING REPORT IN PATIENT SHALA: Not Applicable Referrals: Merlyn Mcmillan DO [Primary Care Provider] - Forms: Interfacility Transfer EMTALA - My Orders Last 24 Hours: My Active Orders 10/18/20 10:52 Sodium Chloride 0.9% [Saline Flush] 10 ml FLUSH ASDIRECTED PRN Blood Culture x2 Reflex Set [OM.PC] Stat Peripheral IV Insertion Adult [OM.PC] Stat 10/18/20 10:53 EKG Documentation Completion [RC] STAT 10/18/20 11:00 CULTURE BLOOD [BC] Stat 10/18/20 11:02 Chest 1V Frontal [CR] Stat 10/18/20 11:19 Urinary Catheter Assessment [RC] ASDIRECTED CULTURE BLOOD [BC] Stat 10/18/20 11:30 Insert Urinary Catheter [OM.PC] Q24H 10/18/20 11:35 UA W/MICROSCOPIC [URIN] Stat 10/18/20 11:50 CULTURE WOUND [RM] Stat 10/18/20 11:55 Oxygen Therapy [RC] ASDIRECTED - Assessment/Plan Last 24 Hours: My Active Orders 10/18/20 10:52 Sodium Chloride 0.9% [Saline Flush] 10 ml FLUSH ASDIRECTED PRN Blood Culture x2 Reflex Set [OM.PC] Stat Peripheral IV Insertion Adult [OM.PC] Stat 10/18/20 10:53 EKG Documentation Completion [RC] STAT 10/18/20 11:00 CULTURE BLOOD [BC] Stat 10/18/20 11:02 Chest 1V Frontal [CR] Stat 10/18/20 11:19 Urinary Catheter Assessment [RC] ASDIRECTED CULTURE BLOOD [BC] Stat 10/18/20 11:30 Insert Urinary Catheter [OM.PC] Q24H 10/18/20 11:35 UA W/MICROSCOPIC [URIN] Stat 10/18/20 11:50 CULTURE WOUND [RM] Stat 10/18/20 11:55 Oxygen Therapy [RC] ASDIRECTED Assessment:: 1. sepsis 2. Hepatic encephalopathy 3. Fever 4. pneumonia Plan: 1. Sepsis protocol initiated and followed 2. Labs completed in the ER. Results reviewed with the patient 3. Blood cultures completed 4. IV initiated in the emergency department 5. IV fluids provided 6. EKG completed in ER. 7. Rocephin 2gm given 8. Wound culture 9. [place] Catheter with UA/UC completed 8. Consultation completed with-Dr. Maravilla who feels this patient will need higher level of care due to recent extended hospital stay and comorbidities. 10. Consultation completed with [facility]- Dr. Parr agrees and will assume care of the patient for further medical management and workup. Pt will be transported via ALS to [facility] 11. Covid-19 swab completed prior to transfer 12. Did discuss further antibiotic however, very limited IV access will continue to hydrate at this time and they will obtain further access and additional antibiotics upon arrival. 13. Patient and nursing staff was updated regarding the plan of care 14. Patient and family are agreeable to the above plan of care 15. All questions and concerns were addressed with the patient and family prior to discharge
[2020-10-18 11:56] LABS: CHLORIDE,CL 93 mmol/L (98-107)
[2020-10-18 11:59] LABS: ANION GAP 15.3 mmol/L (5-15); SODIUM,NA 129 mmol/L (136-145)
[2020-10-18] MEDS ORDERED: Acetaminophen 325 MG Tab PO ONE (12:01)
--- NOTE | 2020-10-18 12:24 | CR ---
[id number] RAD/RAD Chest PA or AP 1V EXAM: FRONTAL CHEST INDICATION: FEVER. COMPARISON: February 10, 2020. DISCUSSION: Soft tissue attenuation and positioning somewhat limit this assessment. The left hemidiaphragm is partially obscured. Possible lateral left base infiltrates. The right lung is clear. Stable cardiomegaly without evidence of edema. IMPRESSION: 1. Possible new left base atelectasis and/or infiltrates. Tino Davila MD 10/18/20 1222 Thank you for allowing us to participate in the care of your patient.
== END 2020-10-18 13:00 | disposition short-term general hospital (02) ==
LOC: VM.ED 10:25
DX: A41.9 Sepsis, unspecified organism (principal); R65.21 Severe sepsis with septic shock; K72.90 Hepatic failure, unspecified without coma; J18.9 Pneumonia, unspecified organism; I10 Essential (primary) hypertension; E11.42 Type 2 diabetes mellitus with diabetic polyneuropathy; R56.9 Unspecified convulsions; E66.9 Obesity, unspecified; Z68.43 Body mass index [BMI] 50.0-59.9, adult; Z88.5 Allergy status to narcotic agent; Z88.6 Allergy status to analgesic agent; Z91.048 Other nonmedicinal substance allergy status; Z88.8 Allergy status to other drugs, medicaments and biological substances; Z79.82 Long term (current) use of aspirin; Z79.4 Long term (current) use of insulin; Z79.01 Long term (current) use of anticoagulants; Z79.899 Other long term (current) drug therapy
CPT/HCPCS: 36415; 51702; 71045; 80053; 81001; 83605; 83880; 84484; 85025; 87040; 87070; 87077; 87186; 93005; 96374; 99284; 99285-25; A9270-GY; J0696; J7030; U0002

== ENCOUNTER 2020-11-17 19:17 | Emergency (ER) | payer MEDICAID ==
[2020-11-17] MEDS ORDERED: Heparin Sodium 100 Units/ML 3 ML Syringe IVPUSH PRN (19:36)
--- NOTE | 2020-11-17 19:47 | EDM.PDOC ---
ED HPI GENERAL MEDICAL PROBLEM - General Chief Complaint: Genitourinary Problem Stated Complaint: Critical Labs Time Seen by Provider: 11/17/20 19:29 Source of Information: Reports: Patient, EMS History Limitations: Reports: No Limitations - History of Present Illness INITIAL COMMENTS - FREE TEXT/NARRATIVE: Pt. presents to ER via EMS. Pt. apparently had labs at [facility] today, and pt. has found to have an elevated potassium. PCP at [facility] requested the patient be transported to [facility] ER. No labs were sent with the patient, unfortunately. Pt. is a resident at the [facility]. He has a history of venous stasis ulcer of R lower leg with subsequent cellulitis. Most recent leg culture showed proteus mirabellis. He was also treated for pneumonia with sepsis from 10/18-10/24. Blood cultures were positive for MRSA. He is receiving Vanco via PICC line according to his [facility] clinic chart, but his documentation from [facility] has him listed as receiving IV daptomyin. Pt. is identified as code 2 on his halfway chart. He does not have an opinion as to whether or not he would want to start dialysis on initial discussion. Pt. offers no complaint other than continued chronic pain. He states that he is not experiencing any chest pain, shortness of breath, lightheadedness, palpitations, nausea, vomiting or diarrhea. Pt. does have a history of previous BESSY and chronic kidney disease. Last creatinine when he was in this facility was 1.3, BUN 25, potassium 5.3. To note, pt. is currently on a potassium sparing diuretic as well as lisinopril. Pt. is non-compliant. Last A1C was 9.5. His has previous issues with addiction, and is quite upset that he was not given his dose of oxycodone before he was sent to the ER. Onset: Today Onset Date: 11/17/20 Location: Reports: Lower Extremity, Left, Lower Extremity, Right Chronic Leg and Hips Pain Score (Numeric/FACES): 7 - Related Data Allergies Allergy/AdvReac Type Severity Reaction Status Date / Time codeine Allergy Other Verified 10/18/20 11:58 ketorolac [From Toradol] Allergy Other Verified 10/18/20 11:58 lactose Allergy Other Verified 10/18/20 11:58 meperidine [From Demerol] Allergy Other Verified 10/18/20 11:58 naproxen Allergy Other Verified 10/18/20 11:58 NSAIDS (Non-Steroidal Allergy Other Verified 10/18/20 11:58 Anti-Inflamma quetiapine [From Seroquel] Allergy Other Verified 10/18/20 11:58 Home Meds: Home Meds Aspirin 81 mg PO DAILY 09/27/19 [History] Benztropine [Cogentin] 0.5 mg PO DAILY 09/27/19 [History] Butalb/Acetaminophen/Caffeine [Nbsqwt-Dydugkkb-Zrkk 50-325-40] 1 each PO Q4H PRN 09/27/19 [History] Calcium Carbonate [Tums] 500 mg PO Q8H PRN 09/27/19 [History] Hydrocortisone [Hydrocortisone 1% Crm] 28.4 gm TOP BID PRN 09/27/19 [History] Insulin Lispro [HumaLOG] 35 unit SQ TID 09/27/19 [History] Loperamide HCl [Imodium A-D] 4 mg PO ASDIRECTED PRN 09/27/19 [History] Naloxone [Narcan] 0.4 mg .XX ASDIRECTED PRN 09/27/19 [History] Ondansetron [Ondansetron Odt] 4 mg PO Q8HR PRN 09/27/19 [History] Pantoprazole Sodium 40 mg PO DAILY 09/27/19 [History] Pramipexole [Mirapex] 0.25 mg PO DAILY 09/27/19 [History] Pregabalin 300 mg PO BID 09/27/19 [History] Rivaroxaban [Xarelto] 10 mg PO DAILY 09/27/19 [History] Torsemide 20 mg PO DAILY 09/27/19 [History] Venlafaxine HCl [Venlafaxine HCl ER] 225 mg PO DAILY 09/27/19 [History] amLODIPine Besylate [Amlodipine Besylate] 10 mg PO DAILY 09/27/19 [History] atorvaSTATin [Lipitor] 10 mg PO DAILY 09/27/19 [History] levETIRAcetam [Levetiracetam] 750 mg PO BID 09/27/19 [History] lisinopriL [Zestril] 40 mg PO DAILY 09/27/19 [History] oxyCODONE 5 mg PO TID 09/27/19 [History] ARIPiprazole [Abilify] 5 mg PO DAILY 02/10/20 [History] Insulin Glarg,Human.Rec.Analog [Lantus Solostar] 75 unit SUBCUT DAILY 02/10/20 [History] Lactulose 30 gm PO TID 02/10/20 [History] Sennosides [Senna] 8.6 mg PO ASDIRECTED PRN 02/10/20 [History] metFORMIN HCl [Metformin HCl] 500 mg PO BID 02/10/20 [History] polyethylene glycoL 3350 [Miralax] 17 gm PO ASDIRECTED PRN 02/10/20 [History] Past Medical History Cardiovascular History: Reports: Hypertension Gastrointestinal History: Reports: Fatty Liver, Other (See Below) Other Gastrointestinal History: Crohns, hepatic failure Musculoskeletal History: Reports: Other (See Below) Other Musculoskeletal History: generalized muscle weakness Neurological History: Reports: Neuropathy, Diabetic, Neuropathy, Peripheral, Seizure Psychiatric History: Reports: Anxiety, Bipolar, Other (See Below) Other Psychiatric History: failure to thrive, personality disorder, mixed obsessional thoughts and acts, episodic paroxysmal anxiety, insomnia, agitation Endocrine/Metabolic History: Reports: Diabetes, Type II, Obesity/BMI 30+ Dermatologic History: Reports: Venous Stasis Dermatitis - Infectious Disease History Infectious Disease History: Reports: MRSA ED ROS GENERAL - Review of Systems Review Of Systems: See Below Constitutional: Reports: Fatigue. Denies: Fever, Chills HEENT: Reports: No Symptoms Respiratory: Reports: No Symptoms Cardiovascular: Reports: No Symptoms Endocrine: Reports: No Symptoms GI/Abdominal: Reports: No Symptoms : Reports: No Symptoms Musculoskeletal: Reports: Leg Pain Skin: Reports: No Symptoms Neurological: Reports: No Symptoms Psychiatric: Reports: No Symptoms Hematologic/Lymphatic: Reports: No Symptoms Immunologic: Reports: No Symptoms ED EXAM, GENERAL - Physical Exam Exam: See Below Exam Limited By: No Limitations General Appearance: Alert, WD/WN, No Apparent Distress Eye Exam: Bilateral Eye: EOMI, PERRL Head: Atraumatic, Normocephalic Respiratory/Chest: No Respiratory Distress, Lungs Clear, Normal Breath Sounds, No Accessory Muscle Use, Chest Non-Tender Cardiovascular: Normal Peripheral Pulses, Regular Rate, Rhythm, No Edema, No JVD, No Murmur GI/Abdominal: Soft, Non-Tender, No Distention, No Mass (Male) Exam: Deferred Rectal (Males) Exam: Deferred Extremities: Other (severe stasis pigmentation to lower extremities.) Neurological: Alert, Oriented, CN II-XII Intact, Normal Cognition, Normal Reflexes, No Motor/Sensory Deficits Psychiatric: Normal Affect, Normal Mood Skin Exam: Warm, Dry, Pallor Lymphatic: No Adenopathy #1 Interpretation Rhythm: NSR [place]: Normal P-Wave: Present QRS: Normal ST-T: Normal QT: Normal Course - Vital Signs Last Recorded V/S: Last Vital Signs Temp 36.8 C 11/17/20 19:29 Pulse 79 11/17/20 19:29 Resp 18 11/17/20 19:29 BP 103/51 L 11/17/20 19:29 Pulse Ox 97 11/17/20 19:29 - Orders/Labs/Meds Orders: Active Orders 24 hr Category Date Time Status EKG Documentation Completion [RC] STAT Care 11/17/20 19:35 Active Dextrose 50% in Water Med 11/17/20 20:30 Ordered 50 ml IV ASDIRECTED PRN Heparin Sodium [Heparin Lock Flush 100 Units/ML] Med 11/17/20 19:36 Active 300 unit IVPUSH ASDIRECTED PRN Sodium Chloride 0.9% @ 125 MLS/HR (1000ml) Med 11/17/20 20:45 Ordered Sodium Chloride 0.9% [Normal Saline] 1,000 ml IV ASDIRECTED Medication Orders Dextrose/Water (Dextrose 50% In Water) 50 ml IV ASDIRECTED PRN PRN Reason: Hypoglycemia Last Admin: 11/17/20 20:38 Dose: 50 ml Documented by: BARBARALSUS Heparin Sodium (Porcine) (Heparin Lock Flush 100 Units/Ml) 300 unit IVPUSH ASDIRECTED PRN PRN Reason: IV Use Last Admin: 11/17/20 19:55 Dose: 300 unit Documented by: ASHLSUS Sodium Chloride (Normal Saline) 1,000 mls @ 125 mls/hr IV ASDIRECTED JUNO Labs: Laboratory Tests 11/17/20 11/17/20 11/17/20 Range/Units 19:48 19:48 19:48 WBC 7.0 (4.0-10.0) x10^3/uL RBC 2.95 L (4.5-6.0) x10^6/uL Hgb 9.3 L D (14.0-18.0) g/dL Hct 28.8 L (40.0-52.0) % MCV 97.6 H D (78.0-93.0) fL MCH 31.5 (26.0-32.0) pg MCHC 32.3 (32.0-36.0) g/dL RDW Coeff of Kimberlyn 13.7 (10.0-15.0) % Plt Count 162 (130-400) x10^3/uL Neut % (Auto) 51.7 (50.0-80.0) % Lymph % (Auto) 32.5 (25.0-50.0) % [place] % (Auto) 11.4 H (2.0-11.0) % Eos % (Auto) 4.0 (0.0-4.0) % Baso % (Auto) 0.4 (0.2-1.2) % PT 13.0 H (9.9-12.5) SEC INR 1.2 L (2.0-3.5) Sodium 131 L (136-145) mmol/L Potassium 6.7 H* (3.5-5.1) mmol/L Chloride 100 (98-107) mmol/L Carbon Dioxide 24 (21-32) mmol/L Anion Gap 13.7 (5-15) mmol/L BUN 43 H (7-18) mg/dL Creatinine 2.2 H (0.70-1.30) mg/dL Est Cr Clr Drug Dosing 35.89 mL/min Estimated GFR (MDRD) 31 Glucose 112 H (74-106) mg/dL Calcium 8.8 (8.5-10.1) mg/dL Corrected Calcium 10.00 (8.5-10.1) mg/dL Magnesium 1.8 (1.8-2.4) mg/dL Total Bilirubin 0.3 (0.2-1.0) mg/dL AST 39 H (15-37) U/L ALT 20 (16-63) U/L Alkaline Phosphatase 242 H (46-116) U/L Troponin I High Sens 5 (<=76) ng/L Total Protein 8.8 H (6.4-8.2) g/dL Albumin 2.5 L (3.4-5.0) g/dL Globulin 6.3 Albumin/Globulin Ratio 0.40 TSH, Ultra Sensitive 1.104 (0.358-3.74) uIU/mL Meds: Medications Generic Name Dose Route Start Last Admin Trade Name Freq PRN Reason Stop Dose Admin Dextrose/Water 50 ml 11/17/20 20:30 11/17/20 20:38 Dextrose 50% In Water IV 50 ml ASDIRECTED PRN Administration Hypoglycemia Heparin Sodium (Porcine) 300 unit 11/17/20 19:36 11/17/20 19:55 Heparin Lock Flush 100 Units/Ml IVPUSH 300 unit ASDIRECTED PRN Administration IV Use Sodium Chloride 1,000 mls @ 125 mls/hr 11/17/20 20:45 Normal Saline IV ASDIRECTED JUNO Discontinued Medications Generic Name Dose Route Start Last Admin Trade Name Freq PRN Reason Stop Dose Admin Calcium Chloride 1 gm 11/17/20 20:25 11/17/20 20:34 Calcium Chloride 10% IVPUSH 11/17/20 20:26 1 gm ONETIME ONE Administration Glucagon 1 mg 11/17/20 20:30 Glucagen IM ASDIRECTED PRN Hypoglycemia Insulin Human Regular 10 unit 11/17/20 20:30 11/17/20 20:35 Humulin R IVPUSH 11/17/20 20:31 10 units ONETIME ONE Administration Oxycodone HCl 5 mg 11/17/20 19:53 11/17/20 19:57 Oxycodone PO 11/17/20 19:54 5 mg ONETIME ONE Administration Sodium Bicarbonate 50 meq 11/17/20 20:29 11/17/20 20:36 Sodium Bicarbonate 8.4% IVPUSH 11/17/20 20:30 50 meq ONETIME ONE Administration - Re-Assessments/Exams Free Text/Narrative Re-Assessment/Exam: 11/17/20 20:40 Pt. was given calcium chloride 1 gm IV, sodium bicarb 1 amp (50mEq), insulin 10u IV, D50 25gm IV. Was started on NS at 125ml/hr. Departure - Departure Time of Disposition: 20:42 Disposition: DC/Tfer to [facility] Clinical Impression: Hyperkalemia, Acute on chronic renal failure - Discharge Information Referrals: Jan Montilla, VANDA [Primary Care Provider] - Forms: ED Department Discharge Sepsis Event Note (ED) - Evaluation Sepsis Screening Result: No Definite Risk - Focused Exam Vital Signs: Vital Signs Temp Pulse Resp BP Pulse Ox 11/17/20 19:29 36.8 C 79 18 103/51 L 97 - My Orders Last 24 Hours: My Active Orders 11/17/20 19:35 EKG Documentation Completion [RC] STAT 11/17/20 19:36 Heparin Sodium [Heparin Lock Flush 100 Units/ML] 300 unit IVPUSH ASDIRECTED PRN 11/17/20 20:30 Dextrose 50% in Water 50 ml IV ASDIRECTED PRN 11/17/20 20:45 Sodium Chloride 0.9% @ 125 MLS/HR (1000ml) Sodium Chloride 0.9% [Normal Saline] 1,000 ml IV ASDIRECTED - Assessment/Plan Last 24 Hours: My Active Orders 11/17/20 19:35 EKG Documentation Completion [RC] STAT 11/17/20 19:36 Heparin Sodium [Heparin Lock Flush 100 Units/ML] 300 unit IVPUSH ASDIRECTED PRN 11/17/20 20:30 Dextrose 50% in Water 50 ml IV ASDIRECTED PRN 11/17/20 20:45 Sodium Chloride 0.9% @ 125 MLS/HR (1000ml) Sodium Chloride 0.9% [Normal Saline] 1,000 ml IV ASDIRECTED Plan: Discussed findings at length with pt. and his sister, Pretty. He is willing to be transferred to [facility] at this time. He will need to be in intermediate care of ICU likely until his potassium normalizes. He is on several medication that could be contributing to his hyperkalemia, especially spironolactone and lisinopril. He wishes for his sister, Pretty, to be involved in his decision making. She recently moved back to [place] from [place]. Her phone # is [phone]. Will recheck bedside glucose every hour during transport. Normal saline at 125ml/hr. Telemetry during transport. He is a code 2, and does not wish to be resuscitated, however.
[2020-11-17] MEDS ORDERED: oxyCODONE 5 MG Tab PO ONE (19:53)
[2020-11-17 20:21] LABS: ANION GAP 13.7 mmol/L (5-15)
[2020-11-17] MEDS ORDERED: Calcium Chloride 10% 1 GM/10 ML Syringe IVPUSH ONE (20:25)
[2020-11-17] MEDS ORDERED: Sodium Bicarbonate 8.4% 50 MEQ/50 ML Syringe IVPUSH ONE (20:29)
[2020-11-17] MEDS ORDERED: Insulin Regular, Human 100 Units/ML 3 ML Vial IVPUSH ONE (20:30)
[2020-11-17] MEDS ORDERED: 50% Dextrose in Water 50 ML Syringe IV PRN (20:30)
[2020-11-17] MEDS ORDERED: Glucagon,Human Recombinant 1 MG Vial IM PRN (20:30)
[2020-11-17] MEDS ORDERED: Sodium Chloride 0.9% 1,000 ML IV SCH (20:45)
== END 2020-11-17 21:20 | disposition short-term general hospital (02) ==
LOC: VM.ED 19:17 → SUPCPDRO 19:17 → VM.ED 21:20
DX: E87.5 Hyperkalemia (principal); I12.9 Hypertensive chronic kidney disease with stage 1 through stage 4 chronic kidney disease, or unspecified chronic kidney disease; E11.22 Type 2 diabetes mellitus with diabetic chronic kidney disease; N18.9 Chronic kidney disease, unspecified; N17.9 Acute kidney failure, unspecified; E11.42 Type 2 diabetes mellitus with diabetic polyneuropathy; R56.9 Unspecified convulsions; L81.9 Disorder of pigmentation, unspecified; E66.9 Obesity, unspecified; Z68.43 Body mass index [BMI] 50.0-59.9, adult; Z79.82 Long term (current) use of aspirin; Z79.4 Long term (current) use of insulin; Z79.01 Long term (current) use of anticoagulants; Z79.899 Other long term (current) drug therapy; Z88.5 Allergy status to narcotic agent; Z88.8 Allergy status to other drugs, medicaments and biological substances; Z91.011 Allergy to milk products
CPT/HCPCS: 80053; 83735; 84443; 84484; 85025; 85610; 93005; 93010; 96374; 96375; 99284; 99285-25; A9270-GY; J1642; J1815-GY; J7030